=== PATIENT | male | born 1970 | race African-American/Black ===

== ENCOUNTER 2020-03-01 01:50 | Emergency (ER) | payer MEDICAID ==
[~2020-03-01] VITALS: Ht 170.2 cm; Wt 59.0 kg
--- NOTE | 2020-03-01 01:55 | NUR ---
ED Nurse Note: Cammie yuen rought into ED by RA from the [facility] stating that he would like to get his medications changed which are olanzapine and divalproex, staates that he has been taking these medications for the past 3 years however states that they have not been working this past week. patient is alert and oriented x4, denies any suicidal or homical ideations. patient does have a brand new refill of these medications in hand. will continue to monitor
[2020-03-01 01:59] VITALS: BP 127/84
--- NOTE | 2020-03-01 01:59 | Emergency Room Report ---
History of Present Illness General Source: Patient Present Illness HPI 49-year-old male with a history of schizophrenia. He just left a mental health hospital today. He presents with chief complaint of needing new medication. He said he still hearing voices. He said the Zyprexa and valproic acid that they prescribed is not working. He said he has been on it for 3 years now. He [address] He denies any other complaint. There is a chronic problem. He denies any drug use. Denies any nausea vomiting he denies any fever chills. No other complaint. Allergies: Coded Allergies: HALOPERIDOL (Verified Allergy, Unknown, 03/01/20) RISPERIDONE (Verified Allergy, Unknown, 03/01/20) Patient History Past Medical History: see triage record, old chart reviewed, schizophrenia Past Surgical History: none Family History: none Social History: tobacco use Immunizations: other Reviewed Nursing Documentation: PMH: Agreed; PSxH: Agreed Review of Systems ENT: Denies: sore throat Cardiovascular: Denies: chest pain, palpitations Gastrointestinal/Abdominal: Denies: nausea, vomiting, diarrhea Musculoskeletal: Denies: back problems Skin: Denies: rash Neurological: Denies: VALDEZ, seizures All Other Systems: negative except mentioned in HPI Physical Exam Vitals unremarkable Sp02 EP Interpretation: reviewed, normal General Appearance: alert/responsive, no apparent distress, non-toxic Head: normocephalic, atraumatic Eyes: PERRL, EOMI ENT: oropharynx normal Neck: supple/symm/no masses Respiratory: effort normal, no rhonchi, no wheezing Cardiovascular: no murmur, gallop, rub Gastrointestinal: non-tender, no mass, non-distended, no rebound/guarding, normal bowel sounds Musculoskeletal: gait & station normal Neurologic: oriented x3, sensory intact, motor strength/tone normal Skin: no rash, normal palpation Medical Decision Making Diagnostic Impression: Primary Impression: Schizophrenia Qualified Codes: F20.9 - Schizophrenia, unspecified ER Course Patient presents with schizophrenia. He is otherwise stable. No acute process that require a 5150. He is not suicidal or homicidal. Will discharge home. Told patient I would not change his medication since he is has been this for over 3 years. This need to be changed by his mental health provider. Status: unchanged Disposition: HOME, SELF-CARE Condition: Stable Additional Instructions: Follow-up with your mental health provider in a week. Return if symptoms worsen. Abstain from drugs and alcohol. Vikas Albrecht MD Mar 01, 2020 01:59
--- NOTE | 2020-03-01 02:00 | NUR ---
ER DISCHARGE NOTE: Patient is cleared to be discharged per ERMD, pt is aox4, on room air, with stable vital signs. pt was given dc instructions, pt was able to verbalize understanding, pt id band removed without complications. pt is able to ambulate with steady gait. pt took all belongings. patient was given a refferall for a mental health clinic.
[2020-03-01 02:05] VITALS: BP 122/80
== END 2020-03-01 02:00 | disposition home or self-care (01) ==
LOC: EDBD 01:50 → EMR 02:00
DX: F20.9 Schizophrenia, unspecified (principal); Z88.8 Allergy status to other drugs, medicaments and biological substances
CPT/HCPCS: 99283